=== PATIENT | female | born 1945 | race Caucasian/White ===

== ENCOUNTER 2020-08-13 09:46 | Observation (INO) | payer MEDICARE ==
[2020-08-13 11:07] LABS: #Eosinphils 0.1 thou/uL (0.0-0.7); #Lymphocytes 1.8 thou/uL (1.20-3.40); #Monocytes 0.4 thou/uL (0.11-0.59); #Neutrophils 2.7 thou/uL (1.40-6.50); %Basophils 0.8 % (0.0-1.0); %Eosinophils 1.3 % (0.0-10.0); %Lymphocytes 35.8 % (21.0-51.0); %Monocytes 8.8 % (0.0-10.0); %Neutrophils 53.4 % (42.0-75.0); Hemoglobin 13.5 g/dL (12.0-16.0); Mean Corpuscular HGB CONC 31.9 g/dL (32.0-36.0); Mean Corpuscular Hemoglobin 29.5 pg (27.0-31.0); Mean Corpuscular Volume 92.5 fL (78.0-98.0); Platelet Count 230 thou/uL (130-400); RBC Distribution Width 13.3 % (11.5-14.5); Red Blood Cell (RBC) Count 4.59 mill/uL (4.20-5.40)
[2020-08-13] MEDS ORDERED: Nitroglycerin 0.4 MG TAB 1 EACH ONE (11:21)
[2020-08-13] MEDS ORDERED: Aspirin Chewable 81 MG TAB ONE (11:21)
[2020-08-13 11:33] LABS: ALT (SGPT) 9 U/L (8-55); AST (SGOT) 14 U/L (5-34); Albumin 3.9 g/dL (3.4-4.8); Alkaline Phosphatase 83 U/L (40-110); Anion Gap 10 mmol/L (10-20); BUN (Urea Nitrogen) 14 mg/dL (9.8-20.1); Bilirubin, Total 0.5 mg/dL (0.2-1.2); Calc. Creatinine Clearance 0 mL/min (70-130); Calcium 9.5 mg/dL (7.8-10.44); Carbon Dioxide 27 mmol/L (23-31); Chloride 108 mmol/L (98-107); Globulin 2.6 g/dL (2.4-3.5); Glucose 99 mg/dL (83-110); Lipase 25 U/L (8-78); Protein, Total 6.5 g/dL (5.8-8.1); Sodium 141 mmol/L (136-145)
[2020-08-13] MEDS ORDERED: Nitroglycerin 0.4 MG TAB (25 Tab Bottle) SL PRN (13:21)
[2020-08-13 13:22] LABS: INR-International Normal Ratio 0.9; Prothrombin Time 12.4 sec (12.0-14.7)
[2020-08-13] MEDS ORDERED: Heparin 25,000 units/D5W 500 ML IVPB SCH (13:30)
[2020-08-13] MEDS ORDERED: Heparin 10,000 UNITS/ 10 ML VIAL SLOW IVP SCH (13:30)
[2020-08-13 13:43] LABS: Troponin I 0.014 ng/mL (< 0.028)
[2020-08-13] MEDS ORDERED: Heparin 10,000 UNITS/ 10 ML VIAL ONE (13:51)
[2020-08-13] MEDS ORDERED: Nitroglycerin 2% Ointment 1 INCH/1 GM Packet ONE (13:51)
[2020-08-13] MEDS ORDERED: Heparin 25,000 units/D5W 500 ML ONE (13:51)
[2020-08-13 14:26] LABS: Hemoglobin 13.2 g/dL (12.0-16.0); Platelet Count 210 thou/uL (130-400)
[2020-08-13 14:33] LABS: Hemoglobin A1c 5.2 % (4.0-6.0)
[2020-08-13 15:05] LABS: Free T4 (Free Thyroxine) 1.2 ng/dL (0.70-1.48); Thyroid Stimulating Hormone 1.8139 uIU/mL (0.35-4.94)
[2020-08-13 17:38] LABS: Troponin I 0.014 ng/mL (< 0.028)
[2020-08-13 17:42] VITALS: BMI 29.7
[2020-08-13] MEDS ORDERED: Carvedilol 6.25 MG TAB PO SCH (18:45)
[2020-08-13 21:30] LABS: PTT Greater than 250.0 sec (22.9-36.1)
[2020-08-13] MEDS: Atorvastatin Calcium 40 MG TAB PO SCH (22:01)
[2020-08-14 07:14] LABS: #Basophils 0.1 thou/uL (0.0-0.2); #Eosinphils 0.1 thou/uL (0.0-0.7); #Lymphocytes 2.1 thou/uL (1.20-3.40); #Monocytes 0.5 thou/uL (0.11-0.59); %Basophils 1.3 % (0.0-1.0); %Eosinophils 2.7 % (0.0-10.0); %Lymphocytes 43.2 % (21.0-51.0); %Neutrophils 42.8 % (42.0-75.0); Hemoglobin 12.8 g/dL (12.0-16.0); Mean Corpuscular HGB CONC 33.9 g/dL (32.0-36.0); Mean Corpuscular Volume 91.4 fL (78.0-98.0); Mean Platelet Volume 7.8 fL (7.4-10.4); Platelet Count 204 thou/uL (130-400); RBC Distribution Width 13.3 % (11.5-14.5); Red Blood Cell (RBC) Count 4.14 mill/uL (4.20-5.40); White Blood Cell (WBC) Count 4.8 thou/uL (4.8-10.8)
[2020-08-14 07:31] LABS: Anion Gap 12 mmol/L (10-20); BUN (Urea Nitrogen) 12 mg/dL (9.8-20.1); Calc. Creatinine Clearance 75 mL/min (70-130); Calcium 9.2 mg/dL (7.8-10.44); Carbon Dioxide 25 mmol/L (23-31); Cardiac Risk 2.4 (Less than 4.5); Chloride 109 mmol/L (98-107); Cholesterol 178 mg/dl (< 200 Desired); Glucose 98 mg/dL (83-110); HDL Cholesterol 75 mg/dL (>60 Neg Risk); LDL Cholesterol, Calculated 88 mg/dL; Potassium 4.4 mmol/L (3.5-5.1); Sodium 142 mmol/L (136-145); Triglycerides 73 mg/dL (Less than 150)
[2020-08-14 08:05] LABS: PTT Greater than 250.0 sec (22.9-36.1)
[2020-08-14] MEDS: Carvedilol 6.25 MG TAB PO SCH ×2 (08:24→17:06)
[2020-08-14] MEDS: Aspirin Chewable 81 MG TAB PO SCH (08:24)
[2020-08-14] MEDS ORDERED: Clopidogrel Bisulfate 75 MG TAB PO SCH (09:00)
[2020-08-14] MEDS: Atorvastatin Calcium 40 MG TAB PO SCH (21:25)
[2020-08-15] MEDS ORDERED: Levothyroxine Sodium 75 MCG TAB PO SCH (06:00)
[2020-08-15] MEDS ORDERED: Enoxaparin Sodium 40 MG/0.4 ML SYRINGE SC SCH (09:00)
[2020-08-15] MEDS ORDERED: Regadenoson 0.4 MG/5 ML SYRINGE ONE (09:15)
[2020-08-15] MEDS: Aspirin Chewable 81 MG TAB PO SCH (11:16)
[2020-08-15] MEDS: Carvedilol 6.25 MG TAB PO SCH (11:16)
[2020-08-15 11:55] VITALS: BP 156/67; TEMP 97.7
== END 2020-08-15 13:03 | disposition home or self-care (01) ==
LOC: ERS 09:46 → 2SW 12:34
PROVIDERS: ADMIT Internal Medicine; ATTEND Internal Medicine
DX: I24.9 Acute ischemic heart disease, unspecified (principal); E78.5 Hyperlipidemia, unspecified; E03.9 Hypothyroidism, unspecified; I10 Essential (primary) hypertension; Z79.82 Long term (current) use of aspirin; Z79.899 Other long term (current) drug therapy; Z86.16 Personal history of COVID-19
CPT/HCPCS: 71045; 78451; 78452; 80048; 80061; 83036; 83690; 84439; 84481; 84484 ×2; 85014; 85018; 85025; 85049; 85610; 85730 ×4; 93005; 93017; 93306; 96365; 96366; 96376; 99285; A9500; A9540; 36415; 80053; 84443; 96372; G0378; J1644; J1650; J2785

== ENCOUNTER 2020-10-21 12:23 | Outpatient (CLI) | payer MEDICARE | END 2020-10-21 12:24 | disposition home or self-care (01) | LOC: BICRAD 12:23 | PROVIDERS: ATTEND Internal Medicine Rheumatology | DX: M25.551 Pain in right hip (principal); M25.552 Pain in left hip; M16.0 Bilateral primary osteoarthritis of hip | CPT/HCPCS: 73523 ==

== ENCOUNTER 2022-05-31 10:01 | Outpatient (CLI) | payer MEDICARE | END 2022-05-31 10:02 | disposition home or self-care (01) | LOC: BICRAD 10:01 | PROVIDERS: ATTEND Internal Medicine Cardiovascular Disease | DX: R06.09 Other forms of dyspnea (principal) | CPT/HCPCS: 71046 ==

== ENCOUNTER 2023-08-06 14:01 | Outpatient (CLI) | payer MEDICARE | END 2023-08-06 14:02 | disposition home or self-care (01) | LOC: SCSRAD 14:01 | PROVIDERS: ATTEND Physician Assistant | DX: M54.50 Low back pain, unspecified (principal); M47.816 Spondylosis without myelopathy or radiculopathy, lumbar region; M41.9 Scoliosis, unspecified | CPT/HCPCS: 72100 ==